=== PATIENT | male | born 1980 | race Caucasian/White ===

== ENCOUNTER 2019-06-21 14:20 | Emergency (ER) | payer OTHER ==
[~2019-06-21] VITALS: Ht 177.8 cm; Wt 104.4 kg
--- NOTE | 2019-06-21 15:26 | ED Lower Extremity ---
General Chief Complaint: Lower Extremity Stated Complaint: R CALF PAIN Nursing Triage Note: PT AMBULATE TO TRIAGE WITH C/O RIGHT CALF PAIN STARTING X2 DAYS AGO. PT REPORTS HE STOOD UP AND STRETCHED AND FELT SOMETHING "TEAR". PT REPORTS PAIN TO THAT AREA. PT REPORTS HX OF "SEVERE UPPER ANKLE SPRAIN" 04/2018. MILD SWELLING AND REDDNESS TO THIS AREA. 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 Nursing Sepsis Screen: No Definite Risk Source: patient Exam Limitations: no limitations History of Present Illness Date Seen by Provider: Jun 21, 2019 Time Seen by Provider: 15:24 Initial Comments To ER with right calf pain for 2 days. This began when he stepped up, he suddenly had a tearing sensation. Yesterday she noticed a tender palpable cord along the medial aspect of the calf, that has increased in length today spreading more proximally. No fevers no chills, he is concerned about DVT because he has a flight scheduled in 2 weeks. His primary care is Dr. Rodriguez. He has only seen her once. He formerly saw the [facility]. Onset: just prior to arrival Severity: moderate Pain/Injury Location: right leg Modifying Factors: Worse With Movement Allergies and Home Medications Allergies Coded Allergies: No Allergy Information Available (Unverified , 06/21/19) Home Medications Rivaroxaban 15 Mg Tablet, 15 MG PO BID use this dose until 08/12/2019 Prescribed by: DELIO DUDLEY on 06/21/19 1710 Rivaroxaban 20 Mg Tablet, 20 MG PO DAILY@1700 DO Not Start this dose until 08/12/2019 Prescribed by: DELIO DUDLEY on 06/21/19 1710 Patient Home Medication List Home Medication List Reviewed: Yes Review of Systems Constitutional: see HPI EENTM: see HPI Respiratory: no symptoms reported Cardiovascular: no symptoms reported Genitourinary: no symptoms reported Musculoskeletal: see HPI Skin: no symptoms reported Past Kaoykyf-Yxifjs-Rxlxhc Hx Patient Social History Alcohol Use: Denies Use Recreational Drug Use: No Smoking Status: Current Everyday Smoker Type Used: Cigars 2nd Hand Smoke Exposure: Yes Recent Foreign Travel: No Contact w/Someone Who Travel: No Recent Infectious Disease Expo: No Recent Hopitalizations: No Physical Abuse: No Sexual Abuse: No Mistreated: No Fear: No Seasonal Allergies Seasonal Allergies: Yes Past Medical History Surgeries: Yes (LEFT CALF FACIOTOMY,) Adenoidectomy, Tonsillectomy, Vasectomy Respiratory: No Cardiac: No Neurological: No Genitourinary: No Gastrointestinal: Yes (GASTROINTESTINITIS) Musculoskeletal: Yes (FACIOTOMY IN LEFT CALF) Degenerate Disk Disease HEENT: Yes (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 oz. kg; 33.00 BMI Method: General Appearance: WD/WN, no apparent distress HEENT: PERRL/EOMI, normal ENT inspection Neck: non-tender, full range of motion Respiratory: no respiratory distress, no accessory muscle use Hips: bilateral hip non-tender, bilateral hip normal inspection, bilateral hip normal range of motion Legs: right leg pain, right leg soft tissue tenderness, right leg other (there is in fact a tender palpable erythematous cord along the medial aspect of the calf.) Knees: bilateral knee non-tender, bilateral knee normal inspection, bilateral knee normal range of motion Ankles: bilateral ankle non-tender, bilateral ankle normal inspection, bilateral ankle normal range of motion Feet: bilateral foot non-tender, bilateral foot normal inspection, bilateral foot normal range of motion Neurologic/Psychiatric: alert, normal mood/affect, oriented x 3 Skin: normal color, warm/dry Progress/Results/Core Measures Results/Orders Lab Results Laboratory Tests Test 06/21/19 16:29 Range/Units White Blood Count 11.2 H 4.3-11.0 10^3/uL Red Blood Count 5.19 4.35-5.85 10^6/uL Hemoglobin 15.7 13.3-17.7 G/DL Hematocrit 46 40-54 % Mean Corpuscular Volume 88 80-99 FL Mean Corpuscular Hemoglobin 30 25-34 PG Mean Corpuscular Hemoglobin Concent 34 32-36 G/DL Red Cell Distribution Width 12.8 10.0-14.5 % Platelet Count 251 130-400 10^3/uL Mean Platelet Volume 9.5 7.4-10.4 FL Neutrophils (%) (Auto) 57 42-75 % Lymphocytes (%) (Auto) 34 12-44 % Monocytes (%) (Auto) 8 0-12 % Eosinophils (%) (Auto) 1 0-10 % Basophils (%) (Auto) 0 0-10 % Neutrophils # (Auto) 6.4 1.8-7.8 X 10^3 Lymphocytes # (Auto) 3.8 1.0-4.0 X 10^3 Monocytes # (Auto) 0.8 0.0-1.0 X 10^3 Eosinophils # (Auto) 0.1 0.0-0.3 10^3/uL Basophils # (Auto) 0.0 0.0-0.1 10^3/uL Sodium Level 140 135-145 MMOL/L Potassium Level 4.1 3.6-5.0 MMOL/L Chloride Level 104 98-107 MMOL/L Carbon Dioxide Level 26 21-32 MMOL/L Anion Gap 10 5-14 MMOL/L Blood Urea Nitrogen 10 7-18 MG/DL Creatinine 1.06 0.60-1.30 MG/DL Estimat Glomerular Filtration Rate > 60 BUN/Creatinine Ratio 9 Glucose Level 86 70-105 MG/DL Calcium Level 9.6 8.5-10.1 MG/DL Corrected Calcium 9.3 8.5-10.1 MG/DL Total Bilirubin 0.3 0.1-1.0 MG/DL Aspartate Amino Transf (AST/SGOT) 23 5-34 U/L Alanine Aminotransferase (ALT/SGPT) 28 0-55 U/L Alkaline Phosphatase 76 40-136 U/L Total Protein 7.2 6.4-8.2 GM/DL Albumin 4.4 3.2-4.5 GM/DL My Orders Orders - DELIO DUDLEY APRN Us Venous Lower Ext Rt (06/21/19 15:16) Cbc With Automated Diff (06/21/19 16:26) Comprehensive Metabolic Panel (06/21/19 16:26) Ct Angio Chest W (06/21/19 16:26) Ed Iv/Invasive Line Start (06/21/19 16:26) Iohexol Injection (Omnipaque 350 Mg/Ml 1 (06/21/19 16:45) Received Contrast (Hold Metformin- Contr (06/21/19 16:45) Sodium Chloride Flush (Catheter Flush Sy (06/21/19 16:45) Ns (Ivpb) (Sodium Chloride 0.9% Ivpb Bag (06/21/19 16:45) Rivaroxaban Tablet (Xarelto Tablet) (06/21/19 17:15) Medications Given in ED Current Medications Medications Dose Ordered Sig/Michelle Route Start Time Stop Time Status Last Admin Dose Admin Iohexol 100 ml ONCE ONCE IV 06/21/19 16:45 06/21/19 16:46 DC 06/21/19 16:55 83 ML Sodium Chloride 10 ml NEEDED PRN IV 06/21/19 16:45 06/21/19 16:55 10 ML Sodium Chloride 100 ml ONCE ONCE IV 06/21/19 16:45 06/21/19 16:46 DC 06/21/19 16:55 80 ML Vital Signs/I&O 06/21/19 15:00 Temp 37.0 Pulse 113 Resp 19 B/P (MAP) 122/84 (97) O2 Delivery Room Air Blood Pressure Mean: 97 Diagnostic Imaging Diagonstic Imaging: CT Comments NAME: GADIEL HUFF [facility] REC#: [id number] PT STATUS: REG ER : 1980 PHYSICIAN: DELIO DUDLEY APRN ADMIT DATE: 06/21/19/ER Draft Date of Exam:06/21/19 US VENOUS LOWER EXT RT INDICATION: Right calf pain. TECHNIQUE: Right leg venous Doppler study performed in routine fashion with color flow Doppler and waveform analysis. The right common femoral vein is patent. The profunda femoris vein is patent. There is long segment deep vein thrombosis however involving the entirety of the SFV as well as popliteal vein, with extension into the tibial veins. There is some thrombus also visualized in the lesser saphenous vein. IMPRESSION: There is evidence of deep vein thrombosis involving the entirety of the right SFV and popliteal vein, extending into the tibial veins. There is also some thrombus in the lesser saphenous vein. Dictated on workstation # [id number] Dict: 06/21/19 1624 Trans: 06/21/19 1628 [facility] [id number] Interpreted by: JANE VALDERRAMA MD Electronically signed by: Departure Communication (Admissions) nanotechnologist reports both superficial thrombophlebitis and extensive deep venous thrombosis right lower extremity. He denies shortness of breath but he is tachycardic at 113, for that reason we need to proceed with CT angiogram of the chest to determine PE burden. Additionally he states he was diagnosed with a severe "high ankle sprain" one year ago. It is possible that he's had a clot for nearly a year. He states his leg has been swollen for about 1 year. Impression Primary Impression: DVT (deep vein thrombosis) in Disposition: HOME, SELF-CARE Condition: Stable Departure-Patient Inst. Decision time for Depature: 17:07 Patient Instructions: Deep Vein Thrombosis (Blood Clots in the Legs) (DC) Add. Discharge Instructions: 1. Anticoagulant as directed. Start this tomorrow. Return to ER for any concerns. You do need to follow-up with your primary care provider within the next one 2 weeks for recheck. Anticoagulant medication is Xarelto. Your dose is 15 mg twice a day for 21 days. Then 20 mg once a day after that for a total of 6 months. You should return to the emergency room for any shortness of breath chest pain or other concerns. All discharge instructions reviewed with patient and/or family. Voiced understanding. Scripts Rivaroxaban (XARELTO TABLET) 20 Mg Tablet 20 MG PO DAILY@1700, #30 TAB DO Not Start this dose until 08/12/2019 Prov: DELIO DUDLEY APRN 06/21/19 Rivaroxaban (XARELTO TABLET) 15 Mg Tablet 15 MG PO BID, #42 TAB use this dose until 08/12/2019 Prov: DELIO DUDLEY APRN 06/21/19 Copy Copies To 1: CHUY RODRIGUEZ MD, PETER J APRN Jun 21, 2019 15:26
--- NOTE | 2019-06-21 16:28 | Diagnostic Imaging Report ---
INDICATION: Right calf pain. TECHNIQUE: Right leg venous Doppler study performed in routine fashion with color flow Doppler and waveform analysis. The right common femoral vein is patent. The profunda femoris vein is patent. There is long segment deep vein thrombosis however involving the entirety of the SFV as well as popliteal vein, with extension into the tibial veins. There is some thrombus also visualized in the lesser saphenous vein. IMPRESSION: There is evidence of deep vein thrombosis involving the entirety of the right SFV and popliteal vein, extending into the tibial veins. There is also some thrombus in the lesser saphenous vein. Dictated by: Dictated on workstation # [id number]
[2019-06-21 16:37] LABS: BASOPHILS % (AUTO) 0 % (0-10); EOSINOPHILS # (AUTO) 0.1 10^3/uL (0.0-0.3); EOSINOPHILS % (AUTO) 1 % (0-10); HEMATOCRIT 46 % (40-54); HEMOGLOBIN 15.7 G/DL (13.3-17.7); LYMPHOCYTES # (AUTO) 3.8 X 10^3 (1.0-4.0); LYMPHOCYTES % (AUTO) 34 % (12-44); MEAN CORPUSCULAR HEMOGLOBIN 30 PG (25-34); MEAN CORPUSCULAR HGB CONC 34 G/DL (32-36); MEAN CORPUSCULAR VOLUME 88 FL (80-99); MEAN PLATELET VOLUME 9.5 FL (7.4-10.4); MONOCYTES # (AUTO) 0.8 X 10^3 (0.0-1.0); MONOCYTES % (AUTO) 8 % (0-12); NEUTROPHILS # (AUTO) 6.4 X 10^3 (1.8-7.8); NEUTROPHILS % (AUTO) 57 % (42-75); PLATELET COUNT 251 10^3/uL (130-400); RED CELL DISTRIBUTION WIDTH 12.8 % (10.0-14.5); WHITE BLOOD COUNT 11.2 10^3/uL (4.3-11.0)
[2019-06-21] MEDS ORDERED: IOHEXOL 350 MG/ML 100 ML (OMNIPAQUE 350) VIAL IV ONE (16:45)
[2019-06-21] MEDS ORDERED: CATHETER FLUSH 10 ML SYR IV PRN (16:45)
[2019-06-21] MEDS ORDERED: NS 100 ML (IVPB) BAG IV ONE (16:45)
[2019-06-21] MEDS ORDERED: HOLD METFORMIN - RECEIVED CONTRAST 20 ML VIAL IV SCH (16:45)
[2019-06-21 17:01] LABS: ALANINE AMINOTRANSFERASE 28 U/L (0-55); ALBUMIN 4.4 GM/DL (3.2-4.5); ALKALINE PHOSPHATASE 76 U/L (40-136); BILIRUBIN,TOTAL 0.3 MG/DL (0.1-1.0); BUN/CREATININE RATIO 9; CALCIUM 9.6 MG/DL (8.5-10.1); CARBON DIOXIDE 26 MMOL/L (21-32); CHLORIDE 104 MMOL/L (98-107); CREATININE SERUM 1.06 MG/DL (0.60-1.30); GFR ESTIMATED > 60; GLUCOSE 86 MG/DL (70-105); POTASSIUM 4.1 MMOL/L (3.6-5.0); SODIUM 140 MMOL/L (135-145); TOTAL PROTEIN 7.2 GM/DL (6.4-8.2)
--- NOTE | 2019-06-21 17:05 | Diagnostic Imaging Report ---
PROCEDURE: CT angiography of the chest with contrast. TECHNIQUE: Multiple contiguous axial images were obtained through the chest after uneventful bolus administration of intravenous contrast. 3D reconstructed CTA MIP acquisitions were also performed. Auto Exposure Controls were utilized during the CT exam to meet ALARA standards for radiation dose reduction. INDICATION: Positive DVT. COMPARISON: None. FINDINGS: The CTA of the chest demonstrates no pulmonary embolism, aortic dissection, or aneurysm. No arteriosclerotic disease is identified. There are no pleural or pericardial effusions. No abnormal adenopathy is present. The visualized portions of the abdomen demonstrate a simple cyst of the right kidney which is incompletely imaged. The lungs are clear. A calcified granuloma is present in the left posterior sulcus. There is a small calcified subcarinal lymph node. The osseous structures demonstrate minimal degenerative changes. There is no evidence of metastatic disease. IMPRESSION: Essentially normal CTA of the chest. There is a calcified granuloma in the left lung base. Dictated by: Dictated on workstation # [id number]
[2019-06-21] MEDS ORDERED: RIVA20TA2 PO (17:10)
[2019-06-21] MEDS ORDERED: RIVA15TA2 PO (17:10)
[2019-06-21] MEDS ORDERED: RIVAROXABAN 15 MG TABLET (XARELTO) PO ONE (17:15)
[2019-06-21 17:32] VITALS: BP 131/78
== END 2019-06-21 17:32 | disposition home or self-care (01) ==
LOC: EDUNIT# 14:20 → ER 14:21
DX: I82.491 Acute embolism and thrombosis of other specified deep vein of right lower extremity (principal); F43.10 Post-traumatic stress disorder, unspecified; F32.9 Major depressive disorder, single episode, unspecified; F40.10 Social phobia, unspecified; F17.290 Nicotine dependence, other tobacco product, uncomplicated; Z79.01 Long term (current) use of anticoagulants; Z90.89 Acquired absence of other organs
CPT/HCPCS: 36415; 71275; 80053; 85025

== ENCOUNTER → 2020-03-14 | Outpatient (CLI) | payer OTHER ==
[~2020-03-14] MED LIST: RIVA15TA2 PO; RIVA20TA2 PO
--- NOTE | 2020-03-14 12:07 | Diagnostic Imaging Report ---
PROCEDURE: US right lower extremity venous. TECHNIQUE: Multiple Real-time grayscale images were obtained over the right lower extremity in various projections. Additional spectral analysis and color Doppler duplex images were also obtained. INDICATION: Deep venous thrombosis. FINDINGS: The prior right lower extremity venous Doppler exam of 06/21/2019 noted extensive thrombosis of the deep venous system. The superficial femoral, popliteal, and tibial veins were involved by thrombus. There was also thrombus formation in the lesser saphenous vein. On this exam, there appears to have been interval partial recanalization of the superficial femoral, popliteal, and proximal tibial veins. There is still some residual nonocclusive thrombus present, however. There is good blood flow and compressibility in the common femoral vein and in the distal peroneal and posterior tibial veins. IMPRESSION: There is still nonocclusive thrombus within the superficial femoral, popliteal, and proximal tibial veins. There is no acute thrombus identified. Dictated by: Dictated on workstation # [id number]
== END ==
LOC: RAD 08:30
PROVIDERS: ATTEND Nurse Practitioner Adult Health
DX: I82.439 Acute embolism and thrombosis of unspecified popliteal vein (principal); I82.419 Acute embolism and thrombosis of unspecified femoral vein; I82.449 Acute embolism and thrombosis of unspecified tibial vein

== ENCOUNTER → 2020-09-21 | Outpatient (CLI) | payer OTHER ==
--- NOTE | 2020-09-21 12:16 | Diagnostic Imaging Report ---
INDICATION: Right breast lump. No prior mammograms are available for comparison. 2-D and 3-D bilateral diagnostic mammography was performed with CAD. Lymph nodes in the upper outer aspects of both breasts are noted. No mass or malignant-appearing microcalcifications are seen at the area of lump in the lower inner right breast. IMPRESSION: BI-RADS 0 No mammographic features suspicious for malignancy are identified. Even so, directed sonographic interrogation of the area of lump in the right breast is recommended and will be performed today. Dictated by: Dictated on workstation # [id number]
--- NOTE | 2020-09-21 12:25 | Diagnostic Imaging Report ---
INDICATION: Right breast nodule. Correlation is made to diagnostic mammogram earlier same day. Sonographic interrogation nodule right breast demonstrates an echogenic ovoid nodule measuring 6 mm x 5 mm x 8 mm at the 4:00 location, 4 cm from the nipple. This likely represents a small lipoma. No other abnormalities seen. IMPRESSION: BI-RADS Category 2 Probable lipoma just below the skin surface 4:00 location right breast, accounting for the patient's palpable abnormality. ACR BI-RADS Category 2: Benign findings. Result letter will be mailed to the patient. Note: At least 10% of breast cancer is not imaged by mammography. Dictated by: Dictated on workstation # [id number]
== END ==
LOC: RAD 10:03
PROVIDERS: ATTEND Nurse Practitioner Adult Health
DX: N63.14 Unspecified lump in the right breast, lower inner quadrant (principal)
CPT/HCPCS: 77062; 77066

== ENCOUNTER → 2020-10-24 | Outpatient (CLI) | payer OTHER ==
[~2020-10-24] MED LIST changes: +CATHETER FLUSH 10 ML SYR IV PRN; +HOLD METFORMIN - RECEIVED CONTRAST 20 ML VIAL IV SCH; +IOHEXOL 350 MG/ML 100 ML (OMNIPAQUE 350) VIAL IV ONE; +NS 100 ML (IVPB) BAG IV ONE
--- NOTE | 2020-10-24 10:25 | Diagnostic Imaging Report ---
PROCEDURE: CT abdomen with contrast only. TECHNIQUE: Multiple contiguous axial images were obtained through the abdomen after the administration of intravenous contrast. Auto Exposure Controls were utilized during the CT exam to meet ALARA standards for radiation dose reduction. INDICATION: Deep venous thrombosis There are no prior CT abdomen examinations available for comparison. The liver is fairly homogeneous and does not seem to be enlarged. There is no evidence for cholelithiasis or acute cholecystitis. The spleen, pancreas, adrenals, kidneys, aorta and inferior vena cava and portal vein show no sign of an acute abnormality. There are several cysts associated with the kidneys. The largest of these is along the medial aspect of the superior pole of the right kidney. This cyst measures 4.7 cm. The stomach is filled with fluid and consequently difficult to assess. There is no mass or free fluid collection within the abdomen. The appendix was visualized and is not abnormally thickened. The lung bases are clear. The 1.7 cm densely calcified nodule in the left lung base seen on the CTA chest exam of 06/21/2019 is again evident and no different. IMPRESSION: 1. There is no acute abnormality of the abdomen. 2. There are bilateral renal cysts including a 4.7 cm cyst along the superior medial aspect of the right kidney. Dictated by: Dictated on workstation # [id number]
== END ==
LOC: RAD 09:15
PROVIDERS: ATTEND Nurse Practitioner Adult Health
DX: N28.1 Cyst of kidney, acquired (principal); I82.409 Acute embolism and thrombosis of unspecified deep veins of unspecified lower extremity
CPT/HCPCS: 74160